=== PATIENT | female | born 1935 | race African-American/Black ===

== ENCOUNTER 2017-04-15 05:05 | Emergency (ER) | payer OTHER ==
[~2017-04-15] VITALS: Ht 165.1 cm; Wt 77.1 kg
[2017-04-15 05:08] VITALS: BP 115/94
== END 2017-04-15 06:07 | disposition home or self-care (01) ==
LOC: ER 05:08
DX: M25.562 Pain in left knee (principal); G89.29 Other chronic pain; E11.9 Type 2 diabetes mellitus without complications; I10 Essential (primary) hypertension
CPT/HCPCS: 99283; A4606; Z7610

== ENCOUNTER 2017-09-27 10:53 | Inpatient (IN) | payer MEDICARE, OTHER ==
[~2017-09-27] VITALS: Ht 165.1 cm; Wt 60.3 kg
[2017-09-27 11:42] LABS: BASOPHILS # (AUTO) 0.1 /CMM (0.0-0.2); BASOPHILS % (AUTO) 1.6 % (0.0-2.0); EOSINOPHILS % (AUTO) 0.1 % (0.0-6.0); HEMATOCRIT 38 % (33-45); LYMPHOCYTES # (AUTO) 1.4 /CMM (0.8-4.8); LYMPHOCYTES % (AUTO) 25.2 % (20.0-44.0); MEAN CORPUSCULAR HEMOGLOBIN 25 PG (26.0-33.0); MEAN CORPUSCULAR HGB CONC 32 g/dl (31.0-36.0); MEAN CORPUSCULAR VOLUME 79 fL (82-100); MONOCYTES # (AUTO) 0.3 /CMM (0.1-1.30); MONOCYTES % (AUTO) 5.7 % (2.0-12.0); NEUTROPHILS # (AUTO) 3.6 /CMM (1.8-8.9); NEUTROPHILS % (AUTO) 67.4 % (43.0-81.0); PLATELET COUNT (AUTO) 228 /CMM (150-450); RDW COEFFICIENT OF VARIATION 13.5 (11.5-15.0); RED BLOOD CELL COUNT(AUTO) 4.79 MIL/uL (4.0-5.2); WHITE BLOOD COUNT (AUTO) 5.4 K/uL (4.3-11.0)
[2017-09-27] MEDS ORDERED: ALBU8.5H8 IH (11:48)
[2017-09-27] MEDS ORDERED: PRAV40TA3 PO (11:48)
[2017-09-27] MEDS ORDERED: BUDE10.2 IH (11:48)
[2017-09-27] MEDS ORDERED: OXYB5TAB PO (11:48)
[2017-09-27] MEDS ORDERED: AMLO5TAB2 PO (11:48)
[2017-09-27] MEDS ORDERED: TRAM50TA2 PO (11:48)
[2017-09-27 11:50] LABS: CARBON DIOXIDE 30 mmol/L (21-32); CHLORIDE 99 mmol/L (98-107); CREATININE 2.1 mg/dL (0.6-1.3); GLUCOSE 203 mg/dL (74-106); SODIUM SERUM 142 mmol/L (136-145); UREA NITROGEN, BLOOD 44 mg/dL (7-18)
[2017-09-27] MEDS ORDERED: BLOO-668 IN (11:50)
[2017-09-27] MEDS ORDERED: INSU100V27 SQ (11:50)
[2017-09-27 11:53] LABS: POTASSIUM 2.8 mmol/L (3.5-5.1)
[2017-09-27 11:56] LABS: ALANINE AMINOTRANSFERASE 12 U/L (12-78); ALKALINE PHOSPHATASE 92 U/L (46-116); ASPARTATE AMINOTRANSFERASE 17 U/L (15-37); BILIRUBIN,DIRECT 0.3 mg/dL (0.0-0.2); LIPASE 330 U/L (73-393); TOTAL PROTEIN, SERUM 9.2 g/dL (6.4-8.2)
[2017-09-27 11:58] LABS: TROPONIN I 0.032 ng/mL (0.00-0.056)
[2017-09-27] MEDS ORDERED: KETO5DRO39 (12:11)
[2017-09-27] MEDS ORDERED: GATI2.5D4 (12:11)
[2017-09-27] MEDS ORDERED: PRED5DRO17 (12:11)
[2017-09-27] MEDS ORDERED: IV NS 0.9% 1,000 ML BAG IV ONE (13:00)
[2017-09-27 13:39] VITALS: BP 135/89
[2017-09-27 16:00] VITALS: BP 127/92
[2017-09-27] MEDS ORDERED: ZOLPIDEM TARTRATE 5 MG TABLET PO PRN (17:00)
[2017-09-27] MEDS ORDERED: HYDROCODONE/APAP 5/325MG 1 EACH TABLET PO PRN (17:30)
[2017-09-27] MEDS ORDERED: MAGNESIUM HYDROXIDE 30 ML UDC PO PRN (17:30)
[2017-09-27] MEDS ORDERED: ACETAMINOPHEN 325 MG TABLET PO PRN (17:30)
[2017-09-27] MEDS ORDERED: Z GUARD REMEDY 2 OZ OINT TP PRN (17:30)
[2017-09-27] MEDS ORDERED: MAG HYDROX/AL HYDROX/SIMETH 30 ML UDC PO PRN (17:30)
[2017-09-27] MEDS ORDERED: ONDANSETRON HCL/PF 4 MG/2 ML VIAL IVP PRN (17:30)
[2017-09-27] MEDS: DOCUSATE SODIUM 100 MG CAPSULE PO SCH (17:56)
[2017-09-27] MEDS ORDERED: TRAMADOL HCL 50 MG TABLET PO PRN (18:00)
[2017-09-27] MEDS ORDERED: KETOROLAC EYE 0.5% 3 ML BOTTLE OP SCH (18:00)
[2017-09-27] MEDS ORDERED: NA PHOS,M-B/NA PHOS,DI-BA 1 EA ENEMA RC ONE (18:00)
[2017-09-27] MEDS ORDERED: prednisoLONE ACETATE 1% SUSP 5 ML BOTTLE OP SCH (18:00)
[2017-09-27] MEDS ORDERED: POTASSIUM CHLORIDE 10 MEQ TABLET.SA PO ONE (18:00)
[2017-09-27] MEDS ORDERED: ALBUTEROL FS 2.5 MG/3 ML VIAL.NEB IH PRN (18:00)
[2017-09-27 20:00] VITALS: BP 142/91
[2017-09-27 22:00] VITALS: BP 142/91
[2017-09-27] MEDS: POLYETHYLENE GLYCOL 3350 17 GM POWD.PACK PO SCH (22:11)
[2017-09-28 00:16] VITALS: BP 163/98
[2017-09-28 04:00] VITALS: BP 145/81
[2017-09-28 07:04] LABS: BASOPHILS # (AUTO) 0.1 /CMM (0.0-0.2); BASOPHILS % (AUTO) 0.9 % (0.0-2.0); EOSINOPHILS % (AUTO) 0.3 % (0.0-6.0); HEMATOCRIT 34 % (33-45); HEMOGLOBIN 11.1 g/dL (11.5-14.8); LYMPHOCYTES # (AUTO) 2.1 /CMM (0.8-4.8); LYMPHOCYTES % (AUTO) 34.4 % (20.0-44.0); MEAN CORPUSCULAR HEMOGLOBIN 26 PG (26.0-33.0); MEAN CORPUSCULAR HGB CONC 32 g/dl (31.0-36.0); MEAN CORPUSCULAR VOLUME 80 fL (82-100); MONOCYTES # (AUTO) 0.5 /CMM (0.1-1.30); NEUTROPHILS # (AUTO) 3.5 /CMM (1.8-8.9); NEUTROPHILS % (AUTO) 56.4 % (43.0-81.0); PLATELET COUNT (AUTO) 237 /CMM (150-450); RDW COEFFICIENT OF VARIATION 14.6 (11.5-15.0); RED BLOOD CELL COUNT(AUTO) 4.27 MIL/uL (4.0-5.2); WHITE BLOOD COUNT (AUTO) 6.2 K/uL (4.3-11.0)
[2017-09-28 07:25] LABS: ALANINE AMINOTRANSFERASE 15 U/L (12-78); ALBUMIN 3.8 g/dL (3.4-5.0); ALKALINE PHOSPHATASE 86 U/L (46-116); ASPARTATE AMINOTRANSFERASE 17 U/L (15-37); BILIRUBIN,TOTAL 0.9 mg/dL (0.2-1.0); CALCIUM, SERUM 10.2 mg/dL (8.5-10.1); CARBON DIOXIDE 27 mmol/L (21-32); CHLORIDE 102 mmol/L (98-107); CREATININE 2.2 mg/dL (0.6-1.3); GLUCOSE 159 mg/dL (74-106); MAGNESIUM 2.3 mg/dL (1.8-2.4); PHOSPHORUS 3.9 mg/dL (2.5-4.9); POTASSIUM 3.1 mmol/L (3.5-5.1); SODIUM SERUM 143 mmol/L (136-145); TOTAL PROTEIN, SERUM 8.3 g/dL (6.4-8.2); UREA NITROGEN, BLOOD 54 mg/dL (7-18)
[2017-09-28 08:00] VITALS: BP 155/89
[2017-09-28 08:02] LABS: CHOLESTEROL 154 mg/dL (<200); CREATINE KINASE, TOTAL 92 U/L (26-192); HDL CHOLESTEROL 46 mg/dL (40-60); LDL 87 mg/dL (0-99); THYROID STIMULATING HORMONE 0.169 uIU/mL (0.358-3.74); TRIGLYCERIDES 103 mg/dL (30-150)
[2017-09-28 08:13] VITALS: BP 153/89
[2017-09-28] MEDS: ATORVASTATIN 10 MG TABLET PO SCH (08:27)
[2017-09-28] MEDS: DOCUSATE SODIUM 100 MG CAPSULE PO SCH ×2 (08:27→16:13)
[2017-09-28] MEDS: AMLODIPINE BESYLATE 5 MG TABLET PO SCH (08:28)
[2017-09-28] MEDS: LIDOCAINE 5% (PATCH) 1 EA PATCH TP SCH (08:28)
[2017-09-28] MEDS ORDERED: Budesonide/Formoterol Fumarate (Symbicort 160-4.5 Mcg In INH SCH (09:00)
[2017-09-28] MEDS ORDERED: MAGN400O6 PO (10:25)
[2017-09-28] MEDS ORDERED: DOCU-141 PO (10:25)
[2017-09-28] MEDS ORDERED: POTASSIUM CHLORIDE 20 MEQ TAB.PRT.SR PO ONE (11:30)
[2017-09-28 16:01] VITALS: BP 124/55
[2017-09-28 20:00] VITALS: BP_SYST 145; BP_SYST 165; BP_DIAS 100; BP_DIAS 90
[2017-09-28] MEDS: POLYETHYLENE GLYCOL 3350 17 GM POWD.PACK PO SCH (21:45)
[2017-09-29 08:00] VITALS: BP 151/79
[2017-09-29] MEDS: ATORVASTATIN 10 MG TABLET PO SCH (08:22)
[2017-09-29] MEDS: LIDOCAINE 5% (PATCH) 1 EA PATCH TP SCH (08:22)
[2017-09-29] MEDS: DOCUSATE SODIUM 100 MG CAPSULE PO SCH (08:22)
[2017-09-29 08:23] VITALS: BP 151/79
[2017-09-29] MEDS: AMLODIPINE BESYLATE 5 MG TABLET PO SCH (08:23)
[2017-09-29 12:09] LABS: PTH, INTACT 107 pg/mL (15-65)
[2017-10-01 12:09] LABS: *SPE ALBUMIN 3.8 g/dL (2.9-4.4); *SPE ALPHA-1-GLOBULIN 0.2 g/dL (0.0-0.4); *SPE ALPHA-2-GLOBULIN 0.9 g/dL (0.4-1.0); *SPE BETA GLOBULIN 1.3 g/dL (0.7-1.3); *SPE GLOBULIN, TOTAL 3.9 g/dL (2.2-3.9); *SPE M-SPIKE Not Observed g/dL (Not Observed); *SPEGAMMA GLOBULIN 1.4 g/dL (0.4-1.8)
== END 2017-09-29 14:45 | DRG 391 ==
LOC: ER 10:54 → TELE 11:59 → MED 09-28 08:33
PROVIDERS: ADMIT Nurse Practitioner Acute Care; ATTEND Nurse Practitioner Acute Care
DX: K59.03 Drug induced constipation (principal); N17.0 Acute kidney failure with tubular necrosis; E11.22 Type 2 diabetes mellitus with diabetic chronic kidney disease; E11.65 Type 2 diabetes mellitus with hyperglycemia; E87.5 Hyperkalemia; N18.3 Chronic kidney disease, stage 3 (moderate); I12.9 Hypertensive chronic kidney disease with stage 1 through stage 4 chronic kidney disease, or unspecified chronic kidney disease; T40.2X5A Adverse effect of other opioids, initial encounter; Y92.009 Unspecified place in unspecified non-institutional (private) residence as the place of occurrence of the external cause; E11.36 Type 2 diabetes mellitus with diabetic cataract; Z79.4 Long term (current) use of insulin; Z79.899 Other long term (current) drug therapy; T40.0X5A Adverse effect of opium, initial encounter; E21.3 Hyperparathyroidism, unspecified; E86.0 Dehydration; E87.6 Hypokalemia; N20.0 Calculus of kidney; Z90.710 Acquired absence of both cervix and uterus; Z96.652 Presence of left artificial knee joint; M85.80 Other specified disorders of bone density and structure, unspecified site; K57.30 Diverticulosis of large intestine without perforation or abscess without bleeding; K40.20 Bilateral inguinal hernia, without obstruction or gangrene, not specified as recurrent; J45.909 Unspecified asthma, uncomplicated; Z79.51 Long term (current) use of inhaled steroids
CPT/HCPCS: 36415; 71045-TC; 80048-TC; 80053-TC; 80061-TC; 80076-TC; 82550-TC; 83690-TC; 83735-TC; 83970; 84100-TC; 84155; 84165; 84443-TC; 84484-TC; 85025-TC; 87081-TC; A4606; J7030; Z7610